=== PATIENT | female | born 1990 | race African-American/Black ===

== ENCOUNTER 2018-05-26 17:34 | Emergency (ER) | payer MEDICAID ==
[~2018-05-26] VITALS: Ht 170.2 cm; Wt 58.1 kg
[2018-05-26 17:34] VITALS: BP 147/99
== END 2018-05-26 19:20 | disposition home or self-care (01) ==
LOC: ER 17:38
DX: F45.8 Other somatoform disorders (principal)
CPT/HCPCS: A4606; Z7502; Z7610